=== PATIENT | female | born 1995 | race African-American/Black ===

== ENCOUNTER 2018-02-04 19:46 | Inpatient (IN) | payer OTHER ==
[~2018-02-04] VITALS: Ht 167.6 cm; Wt 113.4 kg
[2018-02-04 19:47] VITALS: BP 136/86
[2018-02-04] MEDS ORDERED: IBUPROFEN 200200 M1 PO (19:51)
[2018-02-04 21:08] LABS: ABSOLUTE NEUTROPHILS 10.7 thou/uL (1.4-8.2); BASOPHILS 0.7 % (0.0-2.0); EOSINOPHILS 0.2 % (0.0-3.0); HEMATOCRIT 37.4 % (37.0-47.0); HEMOGLOBIN 12.1 gm/dL (12.0-15.0); LYMPHOCYTES 13.6 % (24.0-44.0); MCHC 32.4 g/dL (28.0-37.0); MCV 83.2 fL (80.0-100.0); MONOCYTES 4.7 % (1.0-8.0); PLATELET COUNT 209 thou/uL (150-400); POLYS 80.8 % (36.0-66.0); RBC 4.49 mil/uL (4.20-5.00); RDW 14.1 % (10.5-14.5); WBC 13.2 thou/uL (4.0-11.0)
[2018-02-04 21:08] LABS: URINE BILIRUBIN NEGATIVE (Negative); URINE BLOOD 1+ (Negative); URINE CLARITY CLEAR; URINE COLOR YELLOW; URINE GLUCOSE-RANDOM* NEGATIVE (Negative); URINE KETONES 1+ (Negative); URINE LEUKOCYTES-REFLEX NEGATIVE (Negative); URINE NITRITE-REFLEX NEGATIVE (Negative); URINE PROTEIN (DIPSTICK) 1+ (Negative); URINE SPECIFIC GRAVITY >= 1.030 (1.005-1.035); URINE UROBILINOGEN 0.2 E.U./dl (0.2-1.0)
[2018-02-04 21:15] LABS: CALCIUM 9.9 mg/dL (8.5-10.1); CREATININE 1.1 mg/dL (0.6-1.0); POTASSIUM 4.2 mmol/L (3.5-5.1)
[2018-02-04 21:21] LABS: MUCUS >6 Heavy strn/LPF (None Seen); SQUAMOUS 4-10 Moderate /LPF (0-3)
[2018-02-04 21:22] LABS: BACTERIA-REFLEX None Seen /HPF (None Seen); CRYSTALS None Seen /LPF (None Seen); FINE GRANULAR CASTS 4-10 Moderate /LPF (None Seen); HYALINE CASTS 4-10 Moderate /LPF (None Seen); URINE RBC 3-10 Few /HPF (0-2); URINE WBC-REFLEX 6-15 Few /HPF (0-5)
[2018-02-04 21:34] LABS: ALBUMIN 4.5 g/dL (3.4-5.0); TOTAL BILIRUBIN 0.3 mg/dL (<0.1-1.0); TOTAL PROTEIN 8.3 g/dL (6.4-8.2)
[2018-02-04 22:19] VITALS: BP 127/79
[2018-02-04 22:53] VITALS: BP 128/85
[2018-02-05 03:24] VITALS: BP 104/49
[2018-02-05 07:14] VITALS: BP 87/40
[2018-02-05 08:20] VITALS: BP 121/78
[2018-02-05 10:20] LABS: HEMATOCRIT 34.6 % (37.0-47.0); HEMOGLOBIN 11.3 gm/dL (12.0-15.0); MCH 27.3 pg (26.0-34.0); MCHC 32.7 g/dL (28.0-37.0); MCV 83.6 fL (80.0-100.0); RBC 4.14 mil/uL (4.20-5.00); RDW 14.1 % (10.5-14.5); WBC 10.6 thou/uL (4.0-11.0)
[2018-02-05 10:29] LABS: AMP/METHAMP Negative (Negative); BARBITURATES Negative (Negative); BENZODIAZEPINES Negative (Negative); COCAINE Negative (Negative); METHADONE Negative (Negative); OPIATES Negative (Negative); PCP Negative (Negative)
[2018-02-05 10:31] LABS: CALCIUM 8.4 mg/dL (8.5-10.1); CREATININE 0.9 mg/dL (0.6-1.0); POTASSIUM 3.4 mmol/L (3.5-5.1)
[2018-02-05 15:52] VITALS: BP 120/75
[2018-02-05 19:11] VITALS: BP 123/81
[2018-02-06 03:19] VITALS: BP 119/78
[2018-02-06 04:29] LABS: HEMATOCRIT 32.9 % (37.0-47.0); HEMOGLOBIN 10.7 gm/dL (12.0-15.0); MCH 27.5 pg (26.0-34.0); MCHC 32.7 g/dL (28.0-37.0); MCV 84.1 fL (80.0-100.0); RBC 3.91 mil/uL (4.20-5.00); RDW 14.2 % (10.5-14.5); WBC 7.2 thou/uL (4.0-11.0)
[2018-02-06 04:51] LABS: CALCIUM 8.9 mg/dL (8.5-10.1); CREATININE 0.8 mg/dL (0.6-1.0)
[2018-02-06 07:40] VITALS: BP 119/76
[2018-02-06 17:00] VITALS: BP 122/89
[2018-02-06 20:00] VITALS: BP 117/64; BP 131/77
[2018-02-07 04:00] VITALS: BP 126/85
[2018-02-07 06:43] LABS: HEMATOCRIT 33.6 % (37.0-47.0); MCH 27.5 pg (26.0-34.0); MCHC 32.8 g/dL (28.0-37.0); MCV 83.7 fL (80.0-100.0); RBC 4.02 mil/uL (4.20-5.00); RDW 14.3 % (10.5-14.5); WBC 5.5 thou/uL (4.0-11.0)
[2018-02-07 07:21] LABS: CALCIUM 8.6 mg/dL (8.5-10.1); CREATININE 0.8 mg/dL (0.6-1.0); POTASSIUM 3.8 mmol/L (3.5-5.1)
[2018-02-07 08:49] VITALS: BP 123/90
[2018-02-07 10:44] VITALS: BP 123/90
== END 2018-02-07 13:50 | disposition home or self-care (01) | DRG 557 ==
LOC: ER 19:46 → 4N 21:57 → EROBS 21:57 → 4N 22:47
PROVIDERS: Hospitalist; Nurse Practitioner Acute Care; Physician Assistant
DX: M62.82 Rhabdomyolysis (principal); N17.0 Acute kidney failure with tubular necrosis; J45.909 Unspecified asthma, uncomplicated; E86.0 Dehydration; R25.2 Cramp and spasm; W18.39XA Other fall on same level, initial encounter; Z79.899 Other long term (current) drug therapy; Z82.49 Family history of ischemic heart disease and other diseases of the circulatory system; Z83.3 Family history of diabetes mellitus; Y93.89 Activity, other specified; Y92.89 Other specified places as the place of occurrence of the external cause; Y99.8 Other external cause status
CPT/HCPCS: 10091

== ENCOUNTER 2018-02-09 15:03 | Emergency (ER) | payer OTHER, BC ==
[~2018-02-09] VITALS: Ht 165.1 cm; Wt 93.0 kg
[~2018-02-09 15:03] MED LIST: IBUPROFEN 200200 M1 PO
[2018-02-09 15:55] LABS: ABSOLUTE NEUTROPHILS 2.2 thou/uL (1.4-8.2); HEMATOCRIT 39.5 % (37.0-47.0); LYMPHOCYTES 42.6 % (24.0-44.0); MCH 27.6 pg (26.0-34.0); MCHC 33.1 g/dL (28.0-37.0); MCV 83.4 fL (80.0-100.0); MONOCYTES 8.2 % (1.0-8.0); PLATELET COUNT 222 thou/uL (150-400); POLYS 40.2 % (36.0-66.0); RBC 4.74 mil/uL (4.20-5.00); RDW 13.9 % (10.5-14.5); WBC 5.4 thou/uL (4.0-11.0)
[2018-02-09 15:56] LABS: HEMOGLOBIN 13.1 gm/dL (12.0-15.0)
[2018-02-09 16:03] LABS: CREATININE 0.8 mg/dL (0.6-1.0)
[2018-02-09] MEDS ORDERED: MOBIC15 MG PO (16:50)
== END 2018-02-09 17:06 | disposition home or self-care (01) ==
LOC: ER 15:03
PROVIDERS: Emergency Medicine
DX: T79.6XXA Traumatic ischemia of muscle, initial encounter (principal); S39.012A Strain of muscle, fascia and tendon of lower back, initial encounter; S19.9XXA Unspecified injury of neck, initial encounter; J45.909 Unspecified asthma, uncomplicated; W01.0XXA Fall on same level from slipping, tripping and stumbling without subsequent striking against object, initial encounter; Y93.89 Activity, other specified; Y92.89 Other specified places as the place of occurrence of the external cause; Y99.8 Other external cause status